=== PATIENT | female | born 1980 | race Caucasian/White ===

== ENCOUNTER 2024-04-12 12:49 | Outpatient (CLI) | payer OTHER, SELFPAY ==
--- NOTE | ~2024-04-12 | XR_ITS ---
EXAMINATION: XR foot LT min 3V DATE: 04/12/2024 13:08 INDICATION: Left foot pain. TECHNIQUE: 4 views of left foot were obtained. COMPARISON: None. FINDINGS: Alignment is normal. No fracture. There is mild osteoarthritis of first metatarsophalangeal joint and talonavicular joint. There are enthesophytes at the posterior and plantar aspects of calca robinson tuberosity. IMPRESSION: 1. Mild polyarticular osteoarthritis. Reviewed, dictated and finalized at location A. [facility]
== END 2024-04-12 12:50 | disposition home or self-care (01) ==
DX: M19.072 Primary osteoarthritis, left ankle and foot (principal)
CPT/HCPCS: 73630

== ENCOUNTER 2024-07-12 14:48 | Outpatient (CLI) | payer OTHER, SELFPAY ==
--- NOTE | ~2024-07-12 | MR_ITS ---
MRI of the left foot CLINICAL HISTORY: Pain FINDINGS: Axial T1-weighted and T2 fat-sat images, sagittal T1-weighted and STIR images, and coronal T1-weighted and proton-density fat-sat images were performed. Following intravenous administration of 20 cc ProHance gadolinium, T1-weighted fat-sat imaging was performed in the axial, coronal, and sagi ttal planes. FINDINGS: There is diffuse marrow edema of the fourth proximal phalanx and of the fourth metatarsal h ead with minimal postcontrast amorphous enhancement. T1 marrow signal is preserved. Remaining bone ma rrow signals are unremarkable. There is small joint effusion at the fourth MTP joint. Remaining joint spaces are otherwise unremarkable. No other joint effusion evident. There is mild enhancing soft tissue edema about the fourth metatarsal head/fourth MTP joint region, w ith probable mild intermetatarsal bursitis at the third interspace. There is additional mild dorsal subcutaneous soft tissue edema, no other distinct soft tissue abnorma lity seen. Lisfranc ligament is intact. Flexor and extensor tendons are intact. Intrinsic musculature of the nilda t is unremarkable. IMPRESSION: Marrow edema centered about the fourth MTP joint with small joint effusion and associated surrounding soft tissue enhancement/edema. Findings are somewhat nonspecific, but could reflect stress response or bone contusion with surrounding posttraumatic or reactive soft tissue edema. Inflammatory process or inflammatory arthropathy is a consideration, but there is no T1 hypointense marrow signal to sugge st osteomyelitis. Reviewed, dictated and finalized at [facility]. IMPRESSION: Marrow edema centered about the fourth MTP joint with small joint effusion and associated surrounding soft tissue enhancement/edema. Findings are somewhat non specific, but could reflect stress response or bone contusion with surrounding posttraumatic or reactive soft tissue edema. Inflammatory process or inflammato ry arthropathy is a consideration, but there is no T1 hypointense marrow signal to suggest osteomyelitis.
== END 2024-07-12 14:49 | disposition home or self-care (01) ==
LOC: MICIMG 14:49
DX: M79.89 Other specified soft tissue disorders (principal); M25.475 Effusion, left foot; M79.672 Pain in left foot
CPT/HCPCS: 73720; A9579